=== PATIENT | female | born 1955 | race Caucasian/White ===

== ENCOUNTER 2017-03-07 17:38 | Inpatient (IN) | payer BC ==
[~2017-03-07] VITALS: Ht 167.6 cm; Wt 56.4 kg
--- NOTE | 2017-03-07 17:53 | NUR ---
NO NEUROLOGICAL DEFICITS NOTED. PT SPEAKING IN CLEAR FULL SENTENCES.
--- NOTE | 2017-03-07 17:53 | NUR ---
PT RETURNED TO LOBBY PENDING ROOM AVAILABILITY. VSS. RESPS E/U. NO S/S OF DISTRESS NOTED.
--- NOTE | 2017-03-07 18:23 | NUR ---
PT SITTING UP IN BED WITH AT BEDSIDE. AAOX4 WITH C/O CURRENTLY FEELING DIZZINESS AND GENERALIZED WEAKNESS. PT ALSO STATED THAT STARTING AT 9AM SHE HAD AN UNSTEADY GAIT WITH C/O VERTIGO WELL APHASIA WITH DIFFICULTY SPEAKING WORDS CORRECTLY WHICH HAS SINCE RESOLVED. 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
[2017-03-07 18:50] LABS: BASOPHIL % 0.3 % (0-2); PLATELET COUNT 207 x10^3mcL (130-400)
[2017-03-07 18:57] LABS: CALCIUM 9.8 mg/dL (8.5-10.1); CARBON DIOXIDE 33.8 mmol/L (21-32); CHLORIDE SERUM 104 mmol/L (98-107); CREATININE SERUM 0.7 mg/dL (0.6-1.0); GFR1 > 60 mL/min; GLUCOSE SERUM 95 mg/dL (74-106); POTASSIUM SERUM 4.1 mmol/L (3.5-5.1); RED CELL DISTRIBUTION WIDTH 14.7 % (11.5-14.5); SODIUM SERUM 140 mmol/L (136-145)
[2017-03-07 19:01] LABS: ALBUMIN 4.1 g/dL (3.4-5.0); ALKALINE PHOSPHATASE 82 U/L (46-116); ALT/SGPT 27 U/L (14-59); AST/SGOT 26 U/L (15-37); BILIRUBIN TOTAL 0.45 mg/dL (0.20-1.00); CHOLESTEROL 191 mg/dL (<200); HDL CHOLESTEROL 92 mg/dL (40-60); MAGNESIUM 1.8 mg/dL (1.8-2.4)
--- NOTE | 2017-03-07 19:15 | NUR ---
AGENCY DOCUMENTATION DONE BY Staff Name/Title - :AKBAR CALIXTO [employer] User ID - : Agency Name - :[employer] Time Documented - From - : To - :
--- NOTE | 2017-03-07 19:30 | NUR ---
PT RESTING NO SIGN OF DISTRESS NOTED FAMILY AT BEDSIDE AWAIT RESULTS AND ORDERS CONT TO MONITOR
--- NOTE | 2017-03-07 20:00 | NUR ---
PT TO BR VIA W/C VOIDED URINE COLLECTED
--- NOTE | 2017-03-07 20:14 | NUR ---
PT TO CT PER MD ORDER
--- NOTE | 2017-03-07 21:00 | NUR ---
NO SIGN OF DISTRESS PT AWAITING ORDERS AND DISPO
[2017-03-07 22:05] LABS: PHOSPHOROUS 3.9 mg/dL (2.5-4.9)
--- NOTE | 2017-03-07 22:07 | NUR ---
REPORT GIVEN TO JELENA MEEKS FLOOR RN, ALL QUESTIONS ASKED AND ANSWERED PT TX TO FLOOR IN STABLE CONDITION W/ ALL PERSONAL BELONGINGS
--- NOTE | 2017-03-07 22:10 | NUR ---
REC'D PT FROM ER VIA [facility]. PT IS AAOX4. DENIES DIZZINESS. TELE #19 SR. DENIES PAIN. RESP EVEN AND UNLABORED. NO SOB NOTED. GEN WEAKNESS NOTED. PT STATES SHE CANNOT WALK STRAIGHT. IV NOTED TO LAC. INTACT AND PATENT. ORIENTED PT TO CALL LIGHT. BED IN LOWEST POSITION. WILL ENDORSE TO PRIMARY RN.
[2017-03-07 22:15] LABS: T3 TOTAL 0.73 ng/mL
[2017-03-07 22:29] VITALS: BP 136/78
[2017-03-07 22:29] LABS: microscopic required? NO
[2017-03-07 22:34] VITALS: BP 136/78
[2017-03-07 22:35] LABS: FREE T4 0.95 ng/dL (0.76-1.46); T4(THYROXINE) 6.4 ug/dL (4.7-13.3)
[2017-03-07 22:46] LABS: UA SPECIFIC GRAVITY <=1.005 (1.005-1.035); urine erythrocyte NEGATIVE (NEGATIVE)
[2017-03-08] MEDS ORDERED: RESTASIS0.051 AU (00:02)
[2017-03-08] MEDS ORDERED: NEULASTA6 MG/0.6 M (00:04)
--- NOTE | 2017-03-08 01:36 | NUR ---
PT. SLEEPING AT THIS TIME, RESTING COMFORTABLY. NO NEW NEURO DEFICIT NOTED THUS FAR. IVF INFUSING WELL. CALL LIGHT REMAINS WITHIN REACH.
--- NOTE | 2017-03-08 03:50 | NUR ---
PT. CONTINUE TO REST COMFORTABLY, SLEEPING. NO COMPLAINTS THUS FAR. CALL LIGHT REMAINS WITHIN REACH. NSR ON MONITOR.
[2017-03-08 05:10] VITALS: BP 122/65
--- NOTE | 2017-03-08 05:51 | NUR ---
DR. NERI SPOKE W/ PT. REGARDING NEED FOR MRI OF THE BRAIN. PT. ACKNOWLEDGES NEED FOR TEST AND ALL CONCERNS WERE ADDRESSED BY DR. NERI. PT. MADE AWARE TO BE NPO UNTIL TEST COMPLETED. WILL ENDORSE TO INCOMING NURSE.
--- NOTE | 2017-03-08 07:40 | NUR ---
PT RECEIVED AAOX4, CONVERSING WELL IN FULL SENTENCES. RESP EVEN AND UNLABORED ON RA. TELE #19, SR, HR 74. DENIES ANY CP OR PRESSURE. IV ON LAC INTACT, 20G, INFUSING NS AT 75ML/HR. ABD ROUND/SOFT WITH ACTIVE BS IN ALL QUADS. LAST BM 03/05 PER PT. WILL FOLLOW UP WITH VOIDING WELL WIHTOUT COMPLIANTS. AMBULATORY WITH MINIMAL ASSISTANCE FOR SAFETY. KEPT NPO FOR MRI. DENIES ANY OTHER NEEDS AT THIS TIME. CALL LIGHT WITHIN REACH.
[2017-03-08 08:30] VITALS: BP 126/77
--- NOTE | 2017-03-08 09:30 | NUR ---
PER RADIOLOGY, MRI TO BE DONE AROUND [id number] TODAY. OKAY FOR PT TO HAVE BREAKFAST NOW, BUT NPO AFTER. PT MADE AWARE. BREAKFAST WARMED UP AND PROVIDED TO PATIENT. PT DENIES ANY OTHER NEEDS AT THIS TIME. VISITORS AT BEDSIDE.
[2017-03-08 09:51] VITALS: Ht 167.6 cm; Wt 56.4 kg
--- NOTE | 2017-03-08 12:30 | NUR ---
PT KEPT NPO FOR MRI. PT AWARE AND AGREEABLE. CURRENTLY RESTING IN BED. DENIES ANY NEEDS AT THIS TIME. NO NEURO DEFICITS NOTED.
[2017-03-08 13:04] VITALS: BP 118/71
--- NOTE | 2017-03-08 14:05 | NUR ---
PT TAKEN DOWN TO RADIOLOGY FOR MRI VIA WC. FAMILY AT BEDSIDE.
--- NOTE | 2017-03-08 15:37 | NUR ---
PT BACK FROM MRI, SETTLED INTO BED WITH CALL LIGHT WITHIN REACH. RECONNECTED BACK TO IVF. FAMILY AT BEDSIDE.
--- NOTE | 2017-03-08 15:51 | NUR ---
RECEIVED MRA BRAIN AND MRI BRAIN RESULTS. DR CONNER MADE AWARE.
[2017-03-08] MEDS ORDERED: ECO81 PO (16:02)
[2017-03-08] MEDS ORDERED: MECLIZINE HCL12.5 MG PO (16:03)
[2017-03-08] MEDS ORDERED: SUMATRIPTAN SUC50 M1 PO (16:03)
[2017-03-08] MEDS ORDERED: TYL325 PO (16:03)
[2017-03-08] MEDS ORDERED: APAP/HYDROCODON1 T13 PO (16:03)
[2017-03-08] MEDS ORDERED: COL100 PO (16:03)
[2017-03-08] MEDS ORDERED: ZOFI IV (16:04)
--- NOTE | 2017-03-08 16:40 | NUR ---
DR PUENTES, DR WINSTON, DR CONNER AT BEDSIDE TO DISCUSS PLAN OF CARE WITH PATIENT, , AND BROTHER. ALL QUESTIONS AND CONCERNS ADDRESSED AT THIS TIME.
[2017-03-08 16:54] VITALS: BP 118/71
[2017-03-08] MEDS ORDERED: LIPITOR80 MG PO (16:55)
--- NOTE | 2017-03-08 17:30 | NUR ---
PT RECEIVED AAOX4, CONVERSING WELL IN FULL SENTENCES. NEURO CHECK DONE. NO DEFICITS NOTED. DENIES ANY DIZZINESS OR MERRITT AT THIS TIME. AND BROTHER AT BEDSIDE. CALL LIGHT WITHIN REACH.
--- NOTE | 2017-03-08 17:31 | NUR ---
REPORT GIVEN TO JEANNA FOX AT [facility]. X [phone].
--- NOTE | 2017-03-08 18:15 | NUR ---
LAC 20G IV FLUSHED AND SALINE LOCKED. TELEMETRY RETURNED. FAMILY AT BEDSIDE. ALL QUESTIONS ADDRESSED AT THIS TIME.
--- NOTE | 2017-03-08 18:20 | NUR ---
PT TRANSPORTED BY [facility] TO [facility]. AND BROTHER TO TRANSPORT PT BELONGINGS. PT AAOX4. NO S/S OF ACUTE DISTRESS ON DEPARTURE. IV ON LAC INTACT AND SALINE LOCKED.
--- NOTE | 2017-03-09 08:28 | NUR ---
ECHO NOT DONE PT. DISCHARGED
== END 2017-03-08 18:22 | disposition short-term general hospital (02) | DRG 74 ==
LOC: ED 17:38 → DU 21:20
PROVIDERS: Emergency Medicine; Family Medicine; ADMIT Student in an Organized Health Care Education/Training Program
DX: G90.8 Other disorders of autonomic nervous system (principal); G45.9 Transient cerebral ischemic attack, unspecified; G43.909 Migraine, unspecified, not intractable, without status migrainosus; Z53.29 Procedure and treatment not carried out because of patient's decision for other reasons
CPT/HCPCS: 83880; 84439; 90658; A9577; J7030; Q0092; Q9967